=== PATIENT | female | born 1950 | race Caucasian/White ===

== ENCOUNTER 2016-06-30 17:00 | Outpatient (CLI) | payer OTHER, MEDICARE | END 2016-06-30 17:01 | disposition home or self-care (01) | DX: K80.20 Calculus of gallbladder without cholecystitis without obstruction (principal); R10.11 Right upper quadrant pain ==

== ENCOUNTER 2016-07-01 11:00 | Outpatient (CLI) | payer OTHER, MEDICARE | END 2016-07-01 11:01 | disposition home or self-care (01) | DX: N63 Unspecified lump in breast (principal) | CPT/HCPCS: 76642; G0204 ==

== ENCOUNTER 2016-07-21 08:51 | Outpatient (CLI) | payer OTHER, MEDICARE | END 2016-07-21 08:52 | disposition home or self-care (01) | DX: Z71.3 Dietary counseling and surveillance (principal); E66.9 Obesity, unspecified; E03.9 Hypothyroidism, unspecified; Z68.41 Body mass index [BMI] 40.0-44.9, adult ==

== ENCOUNTER 2016-12-06 08:50 | Outpatient (CLI) | payer MEDICARE, OTHER ==
[2016-12-06 09:26] LABS: CREATININE 0.8 mg/dL (0.4-1.0)
== END 2016-12-06 08:51 | disposition home or self-care (01) ==
LOC: LAB 08:50
PROVIDERS: ATTEND Physician Assistant
DX: K80.20 Calculus of gallbladder without cholecystitis without obstruction (principal)
CPT/HCPCS: 36415; 82565; 84520

== ENCOUNTER 2016-12-09 07:43 | Outpatient (CLI) | payer MEDICARE, OTHER ==
[2016-12-09] MEDS ORDERED: GADOBUTROL 10 MMOL/10 ML VIAL IVP ONE (09:12)
--- NOTE | 2016-12-10 10:08 | MRI Report ---
EXAM: MR ABDOMEN WITH AND WITHOUT CONTRAST (MR PANCREAS AND MRCP) EXAM DATE: 12/09/2016 09:57 AM. CLINICAL HISTORY: MRCP W/WO-ABN FINDING ON IMAGING, RUQ PAIN. Right upper quadrant pain increasing ov er time, despite diet. COMPARISON: Abdominal ultrasound 06/30/2016. TECHNIQUE: Multiplanar breath-hold T1, T2, and DWI sequences obtained through the pancreas and abdome n on an MR scanner. Dedicated 2D and 3D MRCP sequences obtained through the biliary and pancreatic du cts. Images obtained before and after administration of 9 mL Gadavist intravenous contrast. Multiphas e postcontrast sequences obtained through the pancreas. FINDINGS: Lung Bases: The lung bases are clear. Liver: The liver has normal size, morphology. Mildly fatty liver. No evidence of mass. The intrahepat ic ducts appear normal. CBD: The CBD appears normal and measures 2 mm in diameter. Gallbladder: Diffuse gallbladder wall thickening measuring 4-7 mm., Compatible bladder wall enhanceme nt with mild parenchymal cystic edema. Gallbladder is distended and contains sludge and numerous smal l stones. Pancreas: The pancreas appears normal with no mass. The pancreatic duct measures 2 mm in diameter and appears normal with no stone or stricture. Spleen: The spleen appears normal. Kidneys and Adrenals: The kidneys appear normal with no mass or hydronephrosis. There are no cysts in the kidneys. The adrenals appear normal. Bowel: The small bowel and colon appear normal with no inflammation or obstruction. Retroperitoneum: The retroperitoneal structures appear normal with no mass or lymphadenopathy. IMPRESSION: 1. Cholecystitis. Distended gallbladder contains sludge and numerous gallstones. Diffuse gallbladder wall thickening with mild pericholecystic edema. 2. No choledocholithiasis. 3. Mild diffuse fatty liver infiltration. No focal liver mass evident. Exam discussed with hand ironer Dr. Hopkins on 12/10/2016 at 10:02 AM [facility] Referring Provider Line: [phone] SITE ID: [id number]
== END 2016-12-09 07:44 | disposition home or self-care (01) ==
LOC: DI 07:43
PROVIDERS: ATTEND Internal Medicine
DX: K80.10 Calculus of gallbladder with chronic cholecystitis without obstruction (principal)
CPT/HCPCS: 74183; A9585

== ENCOUNTER 2017-04-04 15:02 | Outpatient (CLI) | payer MEDICARE, OTHER | END 2017-04-04 15:03 | disposition home or self-care (01) | LOC: LAB 15:02 | PROVIDERS: ATTEND Physician Assistant Medical | DX: M79.662 Pain in left lower leg (principal); M25.562 Pain in left knee | CPT/HCPCS: 36415; 85379 ==

== ENCOUNTER 2017-07-05 11:19 | Outpatient (CLI) | payer MEDICARE, OTHER ==
--- NOTE | 2017-07-06 17:45 | Mammography Report ---
BILATERAL SCREENING MAMMOGRAM: 07/05/2017 COMPARISON: Mammogram 07/01/2016. INDICATION: Screening. TECHNIQUE: Bilateral CC and MLO breast views. FINDINGS: There are scattered fibroglandular densities. No dominant mass, architectural distortion, or concerning cluster of microcalcifications is seen. IMPRESSION: 1. BIRADS CATEGORY: 1, NEGATIVE. 2. RECOMMEND ANNUAL SCREENING MAMMOGRAM. STANDARD QUALIFYING STATEMENTS 1. This examination was reviewed with the aid of Computed-Aided Detection (CAD) . 2. A negative or benign imaging report should not delay biopsy if clinically suspicious findings are present. Consider surgical consultation if warranted. More than 5 % of cancers are not identified by imaging. 3. Dense breasts may obscure an underlying neoplasm. TD: 07/06/2017 17:45 LORNA
== END 2017-07-05 11:20 | disposition home or self-care (01) ==
LOC: DI 11:19
PROVIDERS: ATTEND Physician Assistant Medical
DX: Z12.31 Encounter for screening mammogram for malignant neoplasm of breast (principal)
CPT/HCPCS: 77067

== ENCOUNTER 2017-08-21 12:57 | Outpatient (CLI) | payer MEDICARE, OTHER ==
--- NOTE | 2017-08-22 12:27 | DEXA Report ---
DEXA SCAN: 08/21/2017 CLINICAL INDICATION: Postmenopausal. TECHNIQUE: Dual energy x-ray absorptiometry (DXA) was performed on a [employer] system. Regions measured are the AP spine, femoral neck, and, if needed, forearm. COMPARISON: None. In accordance with the International Society for Clinical Densitometry (ISCD) guidelines, data from previous exams may be reanalyzed using current recommendations and techniques. This is done to allow a more accurate basis for comparison with the current study. FINDINGS Data for the lumbar spine is as follows: REGION BMD (g/cm/cm) T-SCORE Z-SCORE L1 1.117 -0.1 0.3 L2 1.175 -0.2 0.2 L3 1.432 1.9 2.4 L4 1.273 0.6 1.0 L1-L4 1.258 0.6 1.1 L2-L4 1.297 0.8 1.2 NOTE: All evaluable vertebrae are used for classification. Data for the hip is as follows: REGION BMD (g/cm/cm) T-SCORE Z-SCORE Neck 0.845 -1.4 -0.6 TOTAL 1.007 0.0 0.4 NOTE: The femoral neck or total proximal femur, whichever is lowest, is used for classification. IMPRESSION WHO CLASSIFICATION BASED ON THE INTERNATIONAL REFERENCE STANDARD IS OSTEOPENIA (REFERENCE LEFT FEMORAL NECK). FRACTURE RISK IS INCREASED. RECOMMENDATION: Patients with diagnosis of osteoporosis or osteopenia should have regular bone mineral density assessment. For those eligible for Medicare, routine testing is allowed once every 2 years. Testing frequency can be increased for patients who have rapidly progressing disease or for those who are receiving medical therapy to restore bone mass. COMMENT World Health Organization (WHO) definitions for osteoporosis and osteopenia: NORMAL BMD: T-score at 1.0 or higher, fracture risk is low. OSTEOPENIA BMD: T-score between 1.0 and -2.5, fracture risk is increased. OSTEOPOROSIS BMD: T-score at 2.5 or lower, fracture risk high. National Osteoporosis Foundation recommends: 1. Obtain adequate dietary calcium (at least 1200 mg per day) and vitamin D (400 -800 international units per day). 2. Participate, as appropriate, in regular weightbearing and muscle- strengthening exercise. 3. Avoid tobacco use and reduce alcohol and caffeine intake. 4. For more detailed information see the website at www.NOF.org. TD: 08/21/2017 14:42 LORNA
== END 2017-08-21 12:58 | disposition home or self-care (01) ==
LOC: DI 12:57
PROVIDERS: ATTEND Physician Assistant Medical
DX: Z78.0 Asymptomatic menopausal state (principal); M85.852 Other specified disorders of bone density and structure, left thigh
CPT/HCPCS: 77080

== ENCOUNTER 2017-10-04 19:51 | Outpatient (CLI) | payer MEDICARE, OTHER ==
--- NOTE | 2017-10-05 09:09 | Ultrasound Report ---
Procedure Date: 10/04/2017 Accession Number: [id number] / [id number] Procedure: US - Head or Neck Soft Tissue CPT Code: FULL RESULT: EXAM: Head or Neck Soft Tissue DATE: 10/04/2017 8:33 PM CLINICAL HISTORY: MEDICATION USE, HYPOTHYROIDISM TECHNIQUE: Real time scanning, with sales support representative static images obtained. COMPARISON: 05/09/2013 FINDINGS: The right lobe measures 1.8 x 1.0 x 0.7 cm, and the left lobe measures 2.2 x 0.8 x 0.6 cm. The isthmus measures 2 mm. Thyroid echotexture is again diffusely heterogeneous, without focal nodule. No adenopathy is seen. IMPRESSION: Stable diminutive thyroid, without focal nodule.
== END 2017-10-04 19:52 | disposition home or self-care (01) ==
LOC: DI 19:51
PROVIDERS: ATTEND Physician Assistant Medical
DX: E03.9 Hypothyroidism, unspecified (principal); Z79.899 Other long term (current) drug therapy
CPT/HCPCS: 76536

== ENCOUNTER 2018-08-21 09:30 | Outpatient (CLI) | payer MEDICARE, OTHER ==
--- NOTE | 2018-08-21 10:36 | Mammography Report ---
Reason: SCREENING MAMMO Procedure Date: 08/21/2018 Accession Number: [id number] / [id number] Procedure: RAMY - Screening Mammo w/Timmy CPT Code: FULL RESULT: EXAM: Screening Mammo w/Timmy DATE: 08/21/2018 10:05 AM CLINICAL HISTORY: Routine screening TECHNIQUE: (B) - Bilateral CC and MLO views were obtained. COMPARISON: 07/05/2017, 07/01/2016, 06/29/2015, 06/21/2014, and 05/09/2013. PARENCHYMAL PATTERN: (A) - The breasts demonstrate scattered fibroglandular densities bilaterally. FINDINGS: There is no significant interval change. There are no suspicious masses, calcifications, or areas of distortion. IMPRESSION: Negative examination. BI-RADS category 1. RECOMMENDATION: (ANNUAL) - Recommend routine annual screening mammography. BI-RADS CATEGORY: (1) - Negative. STANDARD QUALIFYING STATEMENTS: 1. This examination was not reviewed with the aid of Computer-Aided Detection (CAD). 2. A negative or benign imaging report should not preclude biopsy if clinically suspicious findings are present. 3. Dense breasts may obscure an underlying neoplasm. 4. This examination was reviewed with the aid of 3D breast imaging (tomosynthesis).
== END 2018-08-21 09:31 | disposition home or self-care (01) ==
LOC: DI 09:30
PROVIDERS: ATTEND Family Medicine
DX: Z12.31 Encounter for screening mammogram for malignant neoplasm of breast (principal)
CPT/HCPCS: 77063; 77067

== ENCOUNTER 2019-09-23 09:47 | Outpatient (CLI) | payer MEDICARE, OTHER ==
--- NOTE | 2019-09-24 12:15 | Mammography Report ---
BILATERAL DIGITAL SCREENING MAMMOGRAM 3D/2D WITH CAD: 09/23/2019 CLINICAL: Routine screening. Comparison is made to exams dated: 08/21/2018 mammogram, 07/05/2017 mammogram, and 07/01/2016 mammogram - [facility]. The tissue of both breasts is predominantly fatty. Current study was also evaluated with a Computer Aided Detection (CAD) system. No significant masses, calcifications, or other findings are seen in either breast. There has been no significant interval change. IMPRESSION: NEGATIVE There is no mammographic evidence of malignancy. A 1 year screening mammogram is recommended. This exam was interpreted at Station ID: [id number]. NOTE: For mammograms, a report in lay terms will be sent to the patient. Approximately 15% of breast malignancies will not be visualized mammographically. In the management of a palpable breast mass, a negative mammogram must not discourage biopsy of a clinically suspicious lesion. Electronically Signed By: Maikol Sage M.D. aty/penrad:09/23/2019 16:55:55 ACR BI-RADS Category 1: Negative 3341F PARENCHYMAL PATTERN: (F) - The breast(s) demonstrate(s) diffuse fatty replacement. BI-RADS CATEGORY: (1) - 1 RECOMMENDATION: (ANNUAL) - Recommend routine annual screening mammography. [id number] 1 year screening LATERALITY: (B)
== END 2019-09-23 09:48 | disposition home or self-care (01) ==
LOC: DI 09:47
PROVIDERS: ATTEND Nurse Practitioner
DX: Z12.31 Encounter for screening mammogram for malignant neoplasm of breast (principal)
CPT/HCPCS: 77063; 77067

== ENCOUNTER 2020-01-23 08:12 | Outpatient (CLI) | payer MEDICARE, OTHER ==
[2020-01-23] MEDS ORDERED: GADOBUTROL 10 MMOL/10 ML VIAL ONE (08:41)
[2020-01-23] MEDS ORDERED: GADOBUTROL 10 MMOL/10 ML VIAL IVP ONE (09:23)
--- NOTE | 2020-01-23 09:53 | MRI Report ---
PROCEDURE: Brain W/WO INDICATIONS: HX OF SEIZURES, TRANSIENT NEUROLOGICAL SYMPTOMS CONTRAST: IV CONTRAST: Gadavist ml: 10 TECHNIQUE: Noncontrast axial T1 spin echo, axial T2 fast spin echo, sagittal and axial FLAIR, coronal T2 fast sp in echo, axial gradient echo, axial diffusion and ADC through the brain. After the administration of contrast, axial and coronal T1 spin echo with fat saturation through the brain. COMPARISON: None. FINDINGS: Image quality: Excellent. CSF spaces: Basal cisterns are patent. No extra-axial fluid collections. Ventricles are normal in size and shape. Brain: No midline shift. No intracranial bleeds or masses. No abnormal intracranial enhancement. There is cerebral volume loss for age. There is minimal periventricular white matter chronic small v essel ischemic change. The brainstem appears normal. Diffusion-weighted images demonstrate no acute ischemic insults. No chronic ischemic insults. Normal intravascular flow voids are present. Skull and face: Calvarial marrow is normal in signal. Orbits appear normal. Sinuses: Sinuses and mastoids appear clear. IMPRESSION: 1. Mild cerebral volume loss. Minimal small vessel ischemic disease. 2. No acute process. No recent infarct. No explanation for seizures. Reviewed by: Vanessa Hale MD on 01/23/2020 9:51 AM PDT Approved by: Vanessa Hale MD on 01/23/2020 9:51 AM PDT Station ID: [id number]
== END 2020-01-23 08:13 | disposition home or self-care (01) ==
LOC: DI 08:12
PROVIDERS: ATTEND Nurse Practitioner
DX: I67.82 Cerebral ischemia (principal); G31.89 Other specified degenerative diseases of nervous system
CPT/HCPCS: 70553; A9585

== ENCOUNTER 2020-11-05 08:14 | Outpatient (CLI) | payer MEDICARE, OTHER ==
--- NOTE | 2020-11-05 10:40 | DEXA Report ---
PROCEDURE: Dexa Spine and/or Hip INDICATIONS: POST MENOPAUSAL TECHNIQUE: Dual energy x-ray absorptiometry (DXA) was performed on a [employer] System. Regions measur ed are the AP Spine, femoral neck, and if needed forearm. COMPARISON: 08/21/2017. FINDINGS: Lumbar Spine: Bone Mineral Density 1.229 g/cm/cm,T score 0.4, statistically interval decrease from the previous study of 08/21/2017 by 2.3% Left Hip: Bone Mineral Density 0.915 g/cm/cm,T score 0.7, statistically interval decrease from the previous st udy by 9.1% Left Femoral Neck: Bone Mineral Density 0.881 g/cm/cm, T score -1.1 (T score greater or equal to -1.0: NORMAL) (T score from -1.1 to -2.4: OSTEOPENIA) (T score less than or equal to -2.5 to: OSTEOPOROSIS) Impression: Mild osteopenia, based on femoral neck calculation. Statistically significant interval de crease in bone mineral density of the lumbar spine and total left hip relative to the previous study. Patients with diagnosis of osteoporosis or osteopenia should have regular bone mineral density assess ment. For those eligible for Medicare, routine testing is allowed once every 2 years. Testing frequ ency can be increased for patients who have rapidly progressing disease or for those who are receivin g medical therapy to restore bone mass. Reviewed by: Michael Hunter MD on 11/05/2020 10:39 AM PDT Approved by: Michael Hunter MD on 11/05/2020 10:39 AM PDT Station ID: [id number]
== END 2020-11-05 08:15 | disposition home or self-care (01) ==
LOC: DI 08:14
PROVIDERS: ATTEND Family Medicine
DX: M85.88 Other specified disorders of bone density and structure, other site (principal)

== ENCOUNTER 2021-01-12 12:34 | Outpatient (CLI) | payer MEDICARE, OTHER ==
--- NOTE | 2021-01-19 08:52 | Mammography Report ---
BILATERAL DIGITAL SCREENING MAMMOGRAM 3D/2D: 01/12/2021 CLINICAL: Routine screening. Comparison is made to exams dated: 09/23/2019 mammogram, 08/21/2018 mammogram, and 07/05/2017 mammogram - [facility]. There are scattered fibroglandular elements in both breasts. No significant masses, calcifications, or other findings are seen in either breast. There has been no significant interval change. IMPRESSION: NEGATIVE There is no mammographic evidence of malignancy. A 1 year screening mammogram is recommended. This exam was interpreted at Station ID: [id number]. NOTE: For mammograms, a report in lay terms will be sent to the patient. Approximately 15% of breast malignancies will not be visualized mammographically. In the management of a palpable breast mass, a negative mammogram must not discourage biopsy of a clinically suspicious lesion. Electronically Signed By: Carrillo Mckeon M.D. ddp/penrad:01/18/2021 12:28:28 ACR BI-RADS Category 1: Negative 3341F PARENCHYMAL PATTERN: (A) - The breast(s) demonstrate(s) scattered fibroglandular densities. BI-RADS CATEGORY: (1) - 1 RECOMMENDATION: (ANNUAL) - Recommend routine annual screening mammography. [id number] 1 year screening LATERALITY: (B)
== END 2021-01-12 12:35 | disposition home or self-care (01) ==
LOC: DI 12:34
DX: Z12.31 Encounter for screening mammogram for malignant neoplasm of breast (principal)

== ENCOUNTER 2022-02-11 09:50 | Outpatient (CLI) | payer MEDICARE, OTHER ==
--- NOTE | 2022-02-14 11:10 | Mammography Report ---
BILATERAL DIGITAL SCREENING MAMMOGRAM 3D/2D: 02/11/2022 CLINICAL: Routine screening. Comparison is made to exams dated: 01/12/2021 mammogram, 09/23/2019 mammogram, 08/21/2018 mammogram, 06/22 mammogram, and 07/01/2016 mammogram - [facility]. There are scattered areas of fibroglandular density in both breasts (category b / 25%-50% glandular t issue). No significant masses, calcifications, or other findings are seen in either breast. There has been no significant interval change. IMPRESSION: NEGATIVE There is no mammographic evidence of malignancy. A 1 year screening mammogram is recommended. This exam was interpreted at Station ID: [id number]. NOTE: For mammograms, a report in lay terms will be sent to the patient. Approximately 15% of breast malignancies will not be visualized mammographically. In the management of a palpable breast mass, a negative mammogram must not discourage biopsy of a clinically suspicious lesion. Electronically Signed By: Maikol Sage M.D. atevelyne/noman:02/11/2022 11:13:23 ACR BI-RADS Category 1: Negative 3341F PARENCHYMAL PATTERN: (A) - The breast(s) demonstrate(s) scattered fibroglandular densities. BI-RADS CATEGORY: (1) - 1 RECOMMENDATION: (ANNUAL) - Recommend routine annual screening mammography. [id number] 1 year screening LATERALITY: (B)
== END 2022-02-11 09:51 | disposition home or self-care (01) ==
LOC: DI 09:50
PROVIDERS: ATTEND Physician Assistant
DX: Z12.31 Encounter for screening mammogram for malignant neoplasm of breast (principal)

== ENCOUNTER 2022-07-29 14:13 | Outpatient (CLI) | payer MEDICARE, OTHER ==
--- NOTE | 2022-07-29 17:14 | DEXA Report ---
PROCEDURE: Dexa Spine and/or Hip INDICATIONS: HYPERPARATHYROIDISM TECHNIQUE: Dual energy x-ray absorptiometry (DXA) was performed on a [employer] System. Regions measur ed are the AP Spine, femoral neck, and if needed forearm. COMPARISON: 11/05/2020 FINDINGS: Lumbar Spine: Bone Mineral Density 1.290 g/cm/cm,T score 0.9, normal Left Femoral Neck: Bone Mineral Density 0.815 g/cm/cm, T score -1.6, osteopenia Left Hip: Bone Mineral Density 0.881 g/cm/cm,T score -1.0, normal density. Bone mineral density 0.915 g/sq cm Left forearm: Bone Mineral Density 0.709 g/cm/cm, T score 0.6, normal (T score greater or equal to -1.0: NORMAL) (T score from -1.1 to -2.4: OSTEOPENIA) (T score less than or equal to -2.5 to: OSTEOPOROSIS) Impression: Osteopenia. Left femoral neck meets criteria for osteopenia Patients with diagnosis of osteoporosis or osteopenia should have regular bone mineral density assess ment. For those eligible for Medicare, routine testing is allowed once every 2 years. Testing frequ ency can be increased for patients who have rapidly progressing disease or for those who are receivin g medical therapy to restore bone mass. Reviewed by: Hugo Mars MD on 07/29/2022 4:12 PM SVETA Approved by: Hugo Mars MD on 07/29/2022 4:12 PM SVETA Station ID: [id number]
== END 2022-07-29 14:14 | disposition home or self-care (01) ==
LOC: DI 14:13
PROVIDERS: ATTEND Internal Medicine Endocrinology, Diabetes & Metabolism
DX: E21.3 Hyperparathyroidism, unspecified (principal); M85.88 Other specified disorders of bone density and structure, other site

== ENCOUNTER 2022-08-31 09:57 | Day surgery (SDC) | payer MEDICARE, OTHER ==
--- NOTE | 2022-08-31 10:20 | ANESTHESIA ---
Pre-Anesthesia VS, & Labs - Diagnosis screening, family hx polyps - Procedure colonoscopy Vital Signs: Temp Pulse Resp BP Pulse Ox O2 Flow Rate 36.2 C L 77 15 137/84 H 98 08/31/22 10:11 08/31/22 10:11 08/31/22 10:11 08/31/22 10:11 08/31/22 10:11 Height: 5 ft 1.5 in Weight (kg): 97 kg Body Mass Index: 39.7 BMI Classification: Obese - NPO >8 hours Last Fluid Intake: am prep - Is Patient ?: No - Lab Results Lab results reviewed: Yes Home Medications and Allergies Home Medications: Ambulatory Orders Levothyroxine Sodium [Levoxyl] 1 tab PO DAILY 08/30/22 Levothyroxine Sodium [Levoxyl] 1 tab PO DAILY 08/30/22 Allergies/Adverse Reactions: Allergies Allergy/AdvReac Type Severity Reaction Status Date / Time fentanyl Allergy Rash Verified 08/30/22 14:05 Sulfa (Sulfonamide Allergy Itching Verified 08/30/22 14:05 Antibiotics) Anes History & Medical History - Anesthetic History Anesthesia Complications: reports: No previous complications Family history of Anesthesia Complications: Denies Family history of Malignant Hyperthermia: Denies - Medical History Cardiovascular: reports: None Pulmonary: reports: None Gastrointestinal: reports: Colon polyps, Hemorrhoids Urinary: reports: None Neuro: reports: Seizure disorder (remote hx in 30s, grand mal) Musculoskeletal: reports: None Endocrine/Autoimmune: reports: HyPOthyroidism, Other Skin: reports: None - Surgical History General: reports: Cholecystectomy, Bowel surgery, Colonoscopy Exam General: Alert, Oriented x3, Cooperative Dental: WNL Mouth Openin Fingerbreadth Neck Mobility: Normal Mallampati classification: II Respiratory: Lungs clear, Normal breath sounds, No respiratory distress Cardiovascular: Regular rate Neurological: Normal speech Mental/Cognitive Status: Alert/Oriented X3, Normal for patient Cognitive Status: Within normal limits Plan Anesthesia Type: Total IV Consent for Procedure(s) Verified and Reviewed: Yes Code Status: Attempt Resuscitation ASA classification: 2-Mild systemic disease Is this case an emergency?: No
[2022-08-31] MEDS ORDERED: LACTATED RINGERS 1,000 ML IV ONE ×2 (10:27→11:45)
[2022-08-31] MEDS ORDERED: PROPOFOL 500 MG/50 ML 500 MG/50 ML VIAL ONE (10:33)
[2022-08-31] MEDS ORDERED: MIDAZOLAM 2 MG/2 ML VIAL ONE (10:43)
[2022-08-31 11:49] VITALS: BP 132/80
--- NOTE | 2022-08-31 13:10 | ANESTHESIA POST OP EVALUATION ---
Anesthesia Post Eval - Post Anesthesia Eval Vitals: Last Vital Signs Temp 36.6 C 08/31/22 11:35 Pulse 73 08/31/22 11:35 Resp 16 08/31/22 11:35 BP 132/80 H 08/31/22 11:35 Pulse Ox 99 08/31/22 11:35 O2 Flow Rate CV Function Including HR & BP: Stable Pain Control: Satisfactory Nausea & Vomiting: Negative Mental Status: Baseline Respiratory Status: Airway Patent Hydration Status: Satisfactory Anesthesia Complications: None
== END 2022-08-31 09:58 | disposition home or self-care (01) ==
LOC: SDS 09:57
PROVIDERS: ATTEND Surgery
DX: Z12.11 Encounter for screening for malignant neoplasm of colon (principal); K64.0 First degree hemorrhoids; E66.9 Obesity, unspecified; Z80.0 Family history of malignant neoplasm of digestive organs; Z68.39 Body mass index [BMI] 39.0-39.9, adult; E03.9 Hypothyroidism, unspecified
CPT/HCPCS: G0105; J7120

== ENCOUNTER 2023-03-03 10:18 | Outpatient (CLI) | payer MEDICARE, OTHER ==
--- NOTE | 2023-03-03 11:02 | XRAY Report ---
PROCEDURE: Hip w/Pelvis 2-3V RT INDICATIONS: GROIN PX,RIGHT TECHNIQUE: AP pelvis with lateral view(s) of the right hip(s). COMPARISON: None. FINDINGS: There is no evidence for acute fracture or dislocation involving the right hip or pelvis. There is hoji-jb-vnoiiluv osteoarthritic type degenerative change involving the left hip with mild de generative change involving the right hip. Moderate degenerative disc disease noted involving the lower lumbar spine. No lytic or sclerotic lesions are seen. IMPRESSION: 1. No evidence for acute findings involving the patient's right hip. 2. Mild degenerative change right hip. 3. Xvok-ir-gpvwzzii degenerative change left hip. 4. Moderate degenerative change lower lumbar spine. Reviewed by: Js Rudd MD on 03/03/2023 11:01 AM PST Approved by: Js Rudd MD on 03/03/2023 11:01 AM PST Station ID: [id number]
--- NOTE | 2023-03-03 16:15 | XRAY Report ---
PROCEDURE: Knee 3 View RT INDICATIONS: KNEE PX,RIGHT TECHNIQUE: 3 views of the knee(s) were acquired. COMPARISON: None. FINDINGS: Bones: No fractures or dislocations. No suspicious bony lesions. There is moderate to severe bila teral medial as well as minimal lateral compartment narrowing. Periarticular osteophytes are present. No distinct erosions. Moderate to severe right patellofemoral compartment narrowing is present. Soft tissues: No knee joint effusion. No suspicious soft tissue calcifications or masses. IMPRESSION: Tricompartmental left and bicompartmental right arthritic change most severe medially. Reviewed by: Addie Andrews MD on 03/03/2023 4:13 PM PST Approved by: Addie Andrews MD on 03/03/2023 4:13 PM PST Station ID: [id number]
== END 2023-03-03 10:19 | disposition home or self-care (01) ==
LOC: DI 10:18
PROVIDERS: ATTEND Physician Assistant
DX: M16.0 Bilateral primary osteoarthritis of hip (principal); M51.36 Other intervertebral disc degeneration, lumbar region; M17.11 Unilateral primary osteoarthritis, right knee

== ENCOUNTER 2023-03-24 10:52 | Outpatient (CLI) | payer MEDICARE, OTHER | END 2023-03-24 10:53 | disposition home or self-care (01) | LOC: NS 10:52 | PROVIDERS: ATTEND Internal Medicine | DX: Z71.3 Dietary counseling and surveillance (principal); E66.9 Obesity, unspecified; Z68.41 Body mass index [BMI] 40.0-44.9, adult; Z71.89 Other specified counseling | CPT/HCPCS: 97802 ==

== ENCOUNTER 2023-08-01 10:45 | Outpatient (CLI) | payer MEDICARE, OTHER ==
--- NOTE | 2023-08-01 12:16 | Ultrasound Report ---
PROCEDURE: Soft Tissue Head or Neck INDICATIONS: THYROID NODULE TECHNIQUE: Real-time scanning was performed of the thyroid gland, with image documentation. COMPARISON: 10/04/2017. FINDINGS: Right: Thyroid lobe measures 1.9 x 0.8 x 0.7 cm, and is heterogeneous in echotexture. Left: Thyroid lobe measures 1.7 x 0.8 x 0.5 cm, and is heterogeneous in echotexture. Isthmus: 0.2. cm thick. No discernible nodule. Normal-appearing right cervical chain lymph node with a fatty hilum and renifo rm shape. IMPRESSION: Atrophic thyroid with diffusely coarsened echogenicity, most consistent with chronic thy roiditis. Reviewed by: Jason Flowers MD on 08/01/2023 12:15 PM PDT Approved by: Jason Flowers MD on 08/01/2023 12:15 PM PDT Station ID: [id number]
== END 2023-08-01 10:46 | disposition home or self-care (01) ==
LOC: DI 10:45
PROVIDERS: ATTEND Physician Assistant
DX: E03.4 Atrophy of thyroid (acquired) (principal)

== ENCOUNTER 2023-10-30 08:43 | Outpatient (CLI) | payer MEDICARE, OTHER ==
--- NOTE | 2023-10-31 08:59 | Mammography Report ---
BILATERAL DIGITAL SCREENING MAMMOGRAM 3D/2D: 10/30/2023 CLINICAL: Routine screening. Comparison is made to exams dated: 02/11/2022 mammogram, 01/12/2021 mammogram, 09/23/2019 mammogram, mammogram, 07/05/2017 mammogram, and 07/01/2016 mammogram - [facility]. Both breasts are almost entirely fatty (category a/<25% glandular tissue). No significant masses, calcifications, or other findings are seen in either breast. There has been no significant interval change. IMPRESSION: NEGATIVE There is no mammographic evidence of malignancy. A 1 year screening mammogram is recommended. Based on the Tyrer Cuzick model (a risk assessment model) the patient's lifetime risk is 9.7% and her 10 year risk is 7.3%. According to the ACR, ACS, and NCCN guidelines, an annual breast MRI exam gareth g with mammogram is recommended if the patient's lifetime risk is 20% or greater. This exam was interpreted at Station ID: [id number]. NOTE: For mammograms, a report in lay terms will be sent to the patient. Approximately 15% of breast malignancies will not be visualized mammographically. In the management of a palpable breast mass, a negative mammogram must not discourage biopsy of a clinically suspicious lesion. Electronically Signed By: Annette beach/noman:10/30/2023 12:16:55 letter sent: No_Letter ACR BI-RADS Category 1: Negative 3341F PARENCHYMAL PATTERN: (F) - The breast(s) demonstrate(s) diffuse fatty replacement. BI-RADS CATEGORY: (1) - 1 RECOMMENDATION: (ANNUAL) - Recommend routine annual screening mammography. [id number] 1 year screening LATERALITY: (B)
== END 2023-10-30 08:44 | disposition home or self-care (01) ==
LOC: DI 08:43
DX: Z12.31 Encounter for screening mammogram for malignant neoplasm of breast (principal)

== ENCOUNTER 2023-12-07 07:13 | Day surgery (SDC) | payer MEDICARE, OTHER ==
[2023-12-07] MEDS: LACTATED RINGERS 1,000 ML IV ONE ×3 (07:15→09:26)
[2023-12-07] MEDS: ACETAMINOPHEN 325 MG TABLET PO ONE (07:30)
--- NOTE | 2023-12-07 07:33 | ANESTHESIA ---
Pre-Anesthesia VS, & Labs - Diagnosis post comfort bleeding, thickened endometrium - Procedure Myosure hysteroscopy, D&C Height: 5 ft 1 in - NPO >8 hours - Is Patient ?: No - Lab Results Lab results reviewed: Yes Home Medications and Allergies Home Medications: Ambulatory Orders Multivitamin 1 each PO DAILY 11/23/23 Cholecalciferol (Vitamin D3) [Vitamin D3] 50 mcg PO DAILY 12/07/23 Krill/Om-3/Dha/Epa/Phospho/Ast [Krill Oil 500 mg Softgel] 500 mg ORAL DAILY 12/07/23 Levothyroxine Sodium [Levoxyl] 112 mcg PO DAILY 08/30/22 Multivitamin 1 each PO DAILY 11/23/23 Allergies/Adverse Reactions: Allergies Allergy/AdvReac Type Severity Reaction Status Date / Time fentanyl Allergy Rash Verified 08/30/22 14:05 Sulfa (Sulfonamide Allergy Unknown Verified 11/23/23 15:17 Antibiotics) Anes History & Medical History - Anesthetic History Anesthesia Complications: reports: No previous complications Family history of Anesthesia Complications: Denies Family history of Malignant Hyperthermia: Denies - Medical History Cardiovascular: reports: None Pulmonary: reports: None Gastrointestinal: reports: Colon polyps, Hemorrhoids Urinary: reports: None Neuro: reports: Seizure disorder (remote hx in 30s, grand mal) Musculoskeletal: reports: Osteoarthritis Endocrine/Autoimmune: reports: HyPOthyroidism, Other Skin: reports: None - Surgical History General: reports: Cholecystectomy, Colonoscopy Exam General: Alert, Oriented x3, Cooperative Dental: WNL Mouth Openin Fingerbreadth Neck Mobility: Normal Mallampati classification: II Thyromental Distance: 4-6 cm Respiratory: Lungs clear, Normal breath sounds, No respiratory distress Cardiovascular: Regular rate Neurological: Normal speech Mental/Cognitive Status: Alert/Oriented X3, Normal for patient Cognitive Status: Within normal limits Plan Anesthesia Type: General Consent for Procedure(s) Verified and Reviewed: Yes Code Status: Attempt Resuscitation ASA classification: 2-Mild systemic disease Is this case an emergency?: No
[2023-12-07] MEDS ORDERED: SEVOFLURANE 250 ML LIQUID INH ONE (07:39)
[2023-12-07] MEDS ORDERED: MIDAZOLAM 2 MG/2 ML VIAL ONE (07:40)
[2023-12-07] MEDS ORDERED: fentaNYL 100 MCG/2 ML VIAL ONE (07:40)
[2023-12-07] MEDS ORDERED: LIDOCAINE-PF 2% 10 ML AMP SUBQ ONE (07:40)
[2023-12-07] MEDS ORDERED: PROPOFOL 200 MG/20 ML VIAL IVP ONE (07:40)
[2023-12-07] MEDS ORDERED: MORPHINE 2 MG/ML CARPUJECT IVP PRN (07:53)
[2023-12-07] MEDS ORDERED: ONDANSETRON 4 MG/2 ML VIAL IVP PRN (07:53)
[2023-12-07] MEDS ORDERED: ATROPINE ABBOJECT 1 MG/10 ML SYRINGE IVP PRN (07:53)
[2023-12-07] MEDS ORDERED: NALOXONE 0.4 MG/ML VIAL IVP PRN (07:53)
[2023-12-07] MEDS ORDERED: METOCLOPRAMIDE 10 MG/2 ML VIAL IVP PRN (07:53)
[2023-12-07] MEDS ORDERED: ePHEDrine 50 MG/ML VIAL IVP PRN (07:53)
[2023-12-07] MEDS ORDERED: HYDROmorphone 0.5 MG/0.5 ML SYRINGE IVP PRN (07:53)
[2023-12-07] MEDS ORDERED: fentaNYL 100 MCG/2 ML VIAL IVP PRN (07:53)
[2023-12-07] MEDS ORDERED: LIDOCAINE 1%-EPI 1:100000 20 ML MDV ONE (07:56)
[2023-12-07] MEDS ORDERED: SILVER NITRATE APPLICATOR TOP ONE (07:56)
[2023-12-07] MEDS ORDERED: BUPIVACAINE 0.5% PF 10 ML VIAL ONE (07:57)
[2023-12-07] MEDS ORDERED: LACTATED RINGERS 1,000 ML IV SCH (08:00)
[2023-12-07] MEDS ORDERED: HYDROmorphone 1 MG/ML CARPUJECT ONE (08:20)
[2023-12-07 08:22] LABS: BASOPHILS # (AUTO) 0.1 10^3/uL (0.0-0.1); BASOPHILS % (AUTO) 0.9 %; EOSINOPHILS # (AUTO) 0.1 10^3/uL (0.0-0.7); EOSINOPHILS % (AUTO) 1.8 %; HCT - HEMATOCRIT 43.7 % (37.0-47.0); HGB - HEMOGLOBIN 14.5 g/dL (12.0-16.0); LYMPHOCYTES # (AUTO) 1.8 10^3/uL (1.5-3.5); LYMPHOCYTES % (AUTO) 33.4 %; MEAN CORPUSCULAR HEMOGLOBIN 30.3 pg (27.0-31.0); MEAN CORPUSCULAR HGB CONC 33.2 g/dL (32.0-36.0); MEAN CORPUSCULAR VOLUME 91.4 fL (81.0-99.0); MEAN PLATELET VOLUME 9.1 fL (7.9-10.8); MONOCYTES # (AUTO) 0.5 10^3/uL (0.0-1.0); MONOCYTES % (AUTO) 8.3 %; NEUTROPHILS % (AUTO) 55.4 %; PLT - PLATELET COUNT 230 10^3/uL (130-450); RED BLOOD COUNT 4.78 10^6/uL (4.20-5.40); RED CELL DISTRIBUTION WIDTH 13.6 % (12.0-15.0); WHITE BLOOD COUNT 5.4 x10^3/uL (4.8-10.8)
[2023-12-07] MEDS ORDERED: ONDANSETRON 4 MG/2 ML VIAL ONE (08:33)
[2023-12-07] MEDS ORDERED: DEXAMETHASONE 4 MG/ML VIAL ONE (08:33)
[2023-12-07] MEDS ORDERED: ePHEDrine 50 MG/ML VIAL IVP ONE (08:41)
[2023-12-07] MEDS ORDERED: SODIUM CHLORIDE 0.9% 10 ML VIAL IVP ONE (08:41)
[2023-12-07] MEDS ORDERED: KETOROLAC 30 MG/ML VIAL ONE (09:18)
--- NOTE | 2023-12-07 09:38 | OPERATIVE REPORT ---
Operative Report - General Procedure Date: 12/07/23 - Other Other Information/Narrative: Pre-Op Diagnosis: Postmenopausal bleeding, thickened endometrium, endometrial polyp, submucosal fibroid Post-Op Diagnosis: Same Procedures: Hysteroscopy with myosure, dilation and curettage Findings: - On bimanual exam, uterus small and mobile. No adnexal masses appreciated - On speculum exam, + atrophic changed noted. Small cervix without visible lesions. - On hysteroscopy, polypoid changes noted at the uterus fundus and right tubal ostia, smooth white lesion on anterior surface of the uterus slightly protruding into the cavity, suspect submucosal fibroid. Specimens: Endometrial curettings Anesthesia Technique: General Fluid deficit: 65cc Estimated Blood Loss (mls): 5cc Blood Replacement (mls): none Fluid Replacement (mls): 900cc Drains: Bladder drained with straight catheter by RN prior to start of procedure Complications: none Condition: stable Procedure Details: The patient was taken to the operating room and general anesthesia was administered. Patient was then placed in the dorsal lithotomy position in Johnny stirrups and prepped and draped in the usual sterile fashion. Exam under anesthesia was performed with the above findings. Weighted speculum and right angle retractor were placed in the vagina and a allis clamp was used to grasp the anterior lip of the cervix. The cervix was progressively dilated to 7mm, to admit operative hysteroscope. The Myosure hysteroscope was advanced through the cervical canal with the above findings. The Myosure device was then was placed through the hysteroscope into the uterine cavity. The polypoid appearing tissue at the uterus fundus and right tubal ostia was removed and the white lesion on anterior surface was shaved. Brisk bleeding from this area was encountered making visualization difficult. The hysteroscope was removed. Endometrial curettings were then obtained with sharp curettage. The allis camp was removed from the cervix and good hemostasis was noted at the cervix. All instruments were removed from the vagina. All counts were reported correct. The patient tolerated the procedure well and was returned to the PACU in stable condition. Melita Calderón MD
--- NOTE | 2023-12-07 09:55 | ANESTHESIA POST OP EVALUATION ---
Anesthesia Post Eval - Post Anesthesia Eval Vitals: Last Vital Signs Temp 36.2 C L 12/07/23 09:45 Pulse 75 12/07/23 09:45 Resp 17 12/07/23 09:45 BP 112/60 12/07/23 09:45 Pulse Ox 97 12/07/23 09:45 O2 Flow Rate CV Function Including HR & BP: Stable Pain Control: Satisfactory (c/o dull ache at R hip are, possibly from positioning, discussed, questions answered) Nausea & Vomiting: Negative Mental Status: Baseline Respiratory Status: Airway Patent Hydration Status: Satisfactory Anesthesia Complications: None
[2023-12-07 10:30] VITALS: BP 114/59; O2SAT 98
== END 2023-12-07 07:14 | disposition home or self-care (01) ==
LOC: SDS 07:13
PROVIDERS: ATTEND Obstetrics & Gynecology
PROC: 0UB98ZZ Excision of Uterus, Via Natural or Artificial Opening Endoscopic (ICD-10-PCS; principal; 2023-12-07 08:15)
DX: N95.0 Postmenopausal bleeding (principal); N84.0 Polyp of corpus uteri; R93.89 Abnormal findings on diagnostic imaging of other specified body structures; D25.0 Submucous leiomyoma of uterus
CPT/HCPCS: 36415; 58558; 85025; A9270; J1170; J3490; J7120